=== PATIENT | female | born 1970 | race Caucasian/White ===

== ENCOUNTER 2021-07-27 07:05 | Day surgery (SDC) | payer OTHER ==
[~2021-07-27] VITALS: Ht 167.6 cm; Wt 77.3 kg
--- NOTE | ~2021-07-27 | OR ---
[facility] [address] [place], [place] [address] Draft DATE OF OPERATION: 07/27/2021 SURGEON: Maxine Zuniga DO PROCEDURE: Total laparoscopic hysterectomy, bilateral salpingectomy, cystoscopy. PER DIEM REGISTERED NURSE: Dr. Escalante. PREOPERATIVE DIAGNOSES: Abnormal uterine bleeding, adenomyosis, chronic endometritis, iron deficiency. POSTOPERATIVE DIAGNOSES: Abnormal uterine bleeding, adenomyosis, chronic endometritis, iron deficiency. ANESTHESIA: General. BLOOD LOSS: 15 mL. COMPLICATIONS: None. SPECIMENS REMOVED: Uterus, tubes, cervix. FINDINGS: Normal-appearing uterus, bilateral tubes and ovaries with left ovary containing a simple appearing physiologic cyst. No intraabdominal adhesions noted. present posterior cul-de-sac. No endometriosis lesion noted overlying bladder or neither bilateral ovarian fossa. INDICATION: The patient is a 50-year-old female, who presented for evaluation of abnormal prolonged and heavy uterine bleeding. Ultrasound was initially concerning for adenomyosis. She declined medical management with Mirena IUD after having tried and failed that over the last year. In office hysteroscopy was performed, which demonstrated pathology significant for adenomyosis and chronic endometritis. The patient strongly desired PATIENT NAME: LAZARO ESCALANTE OPERATIVE REPORT DATE OF : 74 REPORT #: [id number] PHYSICIAN: MAXINE ZUNIGA DO PCP: MAXINE ZUNIGA DO REPORT IS CONFIDENTIAL AND NOT TO BE RELEASED WITHOUT AUTHORIZATION [facility] [address] [facility] [place], [place] [address] Draft definitive surgical management. The risks, benefits, and alternatives to total laparoscopic hysterectomy, bilateral salpingectomy, and cystoscopy were discussed and she elected to proceed. DESCRIPTION OF PROCEDURE: The patient was given 2 g Ancef and taken back to the OR where she was placed under general anesthesia and positioned in dorsal lithotomy. She was prepped and draped in normal sterile fashion. A Dial catheter was placed. A weighted speculum was placed in the vagina. The anterior lip of the cervix was grasped with an Allis clamp and sounded to accommodate a [employer] uterine manipulator. Uterine manipulator was placed without difficulty. All other instrumentation was removed. Surgeon's gloves were changed and attention was turned to the abdomen. 0.25% Marcaine with epinephrine was injected infraumbilically in a curvilinear manner. DICTATION ENDS HERE DO JOYCE Bates/MODL /[id number] Copies: ~ PATIENT NAME: SALLYLAZARO FREEMAN OPERATIVE REPORT DATE OF : 74 REPORT #: [id number] PHYSICIAN: MAXINE ZUNIGA DO PCP: MAXINE ZUNIGA DO REPORT IS CONFIDENTIAL AND NOT TO BE RELEASED WITHOUT AUTHORIZATION
--- NOTE | ~2021-07-27 | OR ---
[facility] [address] [place], [place] [address] Draft DATE OF OPERATION: 07/27/2021 SURGEON: Maxine Zuniga DO BOTTLING LINE OPERATOR: Dr. Escalante. PROCEDURE: Total laparoscopic hysterectomy, bilateral salpingectomy, and cystoscopy. PREOPERATIVE DIAGNOSES: Abnormal uterine bleeding, adenomyosis, chronic endometritis, iron deficiency. POSTOPERATIVE DIAGNOSES: Abnormal uterine bleeding, adenomyosis, chronic endometritis, iron deficiency. ANESTHESIA: General. BLOOD LOSS: 15 mL. COMPLICATIONS: None. FINDINGS: Normal-appearing uterus, bilateral tubes and ovaries. Left ovary with simple physiologic appearing cyst. No endometriosis scarring or other lesions noted overlying bladder, uterus sacral ligaments or bilateral ovarian fossa. Kalpesh-Masters defect present in the posterior fossa, intact bladder dome and [place] without puckering, pinching or sutures visible noted on cystoscopy as well as brisk bilateral ureteral jets. INDICATION: Patient is a 50-year-old female with history of failed medical management of abnormal uterine bleeding, previously having tried Mirena IUD, ultrasound was concerning for adenomyosis, which was confirmed with hysteroscopy, D and C in office. The patient strongly desired definitive surgical management in the form of a hysterectomy. The risks, benefits, and alternatives to a total laparoscopic hysterectomy, bilateral salpingectomy, and cystoscopy were discussed with the patient and her . All PATIENT NAME: LAZARO ESCALANTE DRAGANJAMILAFAISAL OPERATIVE REPORT DATE OF : 74 REPORT #: [id number] PHYSICIAN: MAXINE ZUNIGA DO PCP: MAXINE ZUNIGA DO REPORT IS CONFIDENTIAL AND NOT TO BE RELEASED WITHOUT AUTHORIZATION [facility] [address] [place], [place] [address] Draft questions were answered to their apparent satisfaction and they elected to proceed. PROCEDURE: Patient was taken to the operating room where she was given 2 g Ancef and placed under general anesthesia. She was positioned in dorsal lithotomy and prepped and draped in normal sterile fashion. Dial catheter was placed. Weighted speculum was placed in the vagina. Anterior lip of the cervix was grasped with an Allis clamp and cervix was easily sequentially dilated with Hegar dilators to accommodate a VCare uterine manipulator. Uterine manipulator was placed without difficulty. All other instrumentation was removed. Surgeon's gloves were changed and attention was turned to the abdomen. 0.25% Marcaine was injected in a curvilinear fashion in the infraumbilical fold after which the incision was made with a scalpel. This was carried down to the underlying layer of fascia with blunt and sharp dissection with hemostats and Metzenbaum scissors. Once the fascia was incised, the inferior lip was tagged with a stay suture of 0 Vicryl in a similar manner. Superior lip was tagged with 0 Vicryl stay suture. Peritoneum was entered bluntly. Naga trocar was placed and pneumoperitoneum was achieved with CO2 gas. The patient was placed in Trendelenburg and local anesthetic was injected in the left lower quadrant. Incision was made with a scalpel and 5 mm trocar was placed in left lateral abdomen under direct visualization without complication or difficulty. In a similar manner, local anesthetic was injected in the right lower abdomen. Incision was made with scalpel. A 12 mm trocar was placed under direct visualization without difficulty or complication. Blunt graspers were then used to retract the bowel from the pelvis and pelvis was surveyed with findings as noted above. Left fimbriated end of the fallopian tubes was grasped and elevated with atraumatic graspers. LigaSure device was used to cauterize and cut along the mesosalpinx and amputated at the level of the cornua. Tube was removed from the abdomen under direct visualization, in a similar manner right fimbriated end of the fallopian tube was grasped and elevated. A LigaSure device was used to cauterize and cut along the mesosalpinx to the level of the cornua where tube was transected and then removed from the abdomen under direct visualization. Right utero-ovarian ligament was cauterized and cut also with LigaSure device in a similar manner. Left utero-ovarian ligament was then cauterized and cut. LigaSure device was used for the remainder of the case except as otherwise noted. Round ligament was cauterized and cut adjoining with prior cauterization of utero-ovarian ligament on the left. The posterior leaf of the broad ligament was entered and dissected down to the level of the left uterosacral and brought across medially. In a similar manner, the anterior leaf was dissected to the level of the cardinal ligaments, brought across medially initiating the bladder flap. Uterine vessels were skeletonized and cauterized and cut with resulting hemostasis. Attention was then turned to the right side where the round ligament was cauterized and cut meeting prior cauterization and cut of utero-ovarian ligament. Anterior leaf of the broad ligament on the right was dissected down to the level of the cardinal ligaments, was brought medially to join with the prior dissection. Bladder flap was then further PATIENT NAME: LAZARO ESCALANTE OPERATIVE REPORT DATE OF : 74 REPORT #: [id number] PHYSICIAN: MAXINE ZUNIGA DO PCP: MAXINE ZUNIGA DO REPORT IS CONFIDENTIAL AND NOT TO BE RELEASED WITHOUT AUTHORIZATION [facility] [address] [place], [place] [address] Draft developed anteriorly, the posterior leaf of the broad ligament was then dissected posteriorly to the level of the right uterosacral, brought across medially to meet the prior dissection. Uterine vessels were then skeletonized, cauterized, and cut with resulting hemostasis. Cervical pelvic fascia was further developed bilaterally. Excellent blanching of the uterus was noted. Colpotomy was performed with AUTOFACT Harmonic device taking care to stay within balance of the VCare uterine manipulator and working first from 6 o'clock to 12 o'clock in a clockwise direction, then from 6 o'clock to 12 o'clock in a counter-clockwise direction. Once uterus and cervix were free, they were delivered vaginally. Vaginal packing was placed. Surgeon's gloves were changed and attention was returned to the abdomen. Pelvis was suction irrigated with mild bruising noted near the right apex at the level of the left uterosacral posteriorly. Cuff closure was initiated with VCare where V-Loc suture using the Endo Stitch device working from right uterosacral towards midline. However, the device jammed, suture was cut and a second suture was brought in to complete the closure working again from right uterosacral ligament to left uterosacral ligament and back towards midline as per healthcare translator's guidelines. Suture was cut. Pelvis was again suction irrigated with excellent hemostasis noted even at the right apex. Fascia of the 12 mm incision was closed with 0 Vicryl stitch using the Manuel Orlando device. Remaining trocars were removed. Fascia of the infraumbilical incision was closed with 0 Vicryl in a running fashion. Stay sutures were tied over top of the closure and skin was closed with 4-0 Monocryl. Attention was then turned to the bladder. Vaginal packing was removed. Dial catheter was removed. Cystoscope was inserted without difficulty. Bladder was surveyed with normal findings as noted above and brisk bilateral ureteral jets. All instrumentation was removed. Sponge and instrument counts were correct. The patient was taken to recovery room in stable and satisfactory condition. Maxine Zuniga DO [facility] [place] /[id number] Copies: ~ PATIENT NAME: LAZARO ESCALANTE OPERATIVE REPORT DATE OF : 74 REPORT #: [id number] PHYSICIAN: MAXINE ZUNIGA DO PCP: MAXINE ZUNIGA DO REPORT IS CONFIDENTIAL AND NOT TO BE RELEASED WITHOUT AUTHORIZATION
[~2021-07-27 07:05] MED LIST: IRON18 MG PO; ISO D3 2,000 U1 EACH PO
--- NOTE | 2021-07-28 16:47 | PATH ---
[facility] [address] [place], [place] [address] Signed SPECIMEN(S): A UTERUS, CERVIX, BILAT FALLOPIAN TUBES SPECIMEN SOURCE: A. UTERUS, CERVIX, BILAT FALLOPIAN TUBES CLINICAL HISTORY: Abnormal uterine bleeding. TLH, BS, cystoscopy. FINAL PATHOLOGIC DIAGNOSIS: Uterus, cervix, and bilateral fallopian tubes, hysterectomy and bilateral salpingectomy: - Cervix: No histopathologic abnormality. - Endometrium: Late secretory phase endometrium. - Myometrium: No histopathologic abnormality. - Fallopian tubes: No histopathologic abnormality. - No evidence of malignancy. NAL:cml:C2NR MICROSCOPIC EXAMINATION: Histologic sections of all submitted blocks are examined by light microscopy. These findings, together with the gross examination, support the pathologic diagnosis. GROSS DESCRIPTION: The specimen, labeled "SW, A," and designated on the requisition "uterus, cervix, bilateral fallopian tubes," is received in formalin and consists of a uterus (136 gram, 7.0 cm superior to inferior, 6.7 cm cornu to cornu, 5.5 cm anterior to posterior), attached cervix (3.3 x 3.3 cm) with pink-perez, smooth cervical mucosa and patent, slit-shaped os (2.0 x 0.2 cm), and two detached and undesignated fimbriated fallopian tube segments (5.5 cm in length and ranging in diameter from 0.7-1.0 cm, and 6.3 cm in length and ranging in diameter from 0.7-1.1 cm). One fallopian tube segment is arbitrarily inked blue. Both fallopian tube segments are brown-perez and are sectioned to reveal a grossly unremarkable cut surface. The fimbriae are entirely submitted. The uterine serosa is pink-perez and smooth. The specimen is opened to reveal a pink-perez to hemorrhagic endocervix (endocervical canal: 3.0 cm in length x 1.5 cm in diameter) with multiple mucoid material-filled cysts within the wall of the cervix that measure up to 0.9 cm in greatest dimension, and endometrial cavity (4.5 cm superior to inferior x PATIENT NAME: LAZARO ZAVALA PATHOLOGY DATE OF : 74 REPORT #: [id number] PHYSICIAN: NELLY ADAN PCP: MAXINE LEVINE DO REPORT IS CONFIDENTIAL AND NOT TO BE RELEASED WITHOUT AUTHORIZATION [facility] [address] [place], [place] [address] Signed 3.2 cm cornu to cornu) with hemorrhagic endometrial lining that measures up to 0.2 cm in thickness. The myometrium is pink-perez and trabeculated with no masses. Marine Service Manager sections are submitted as follows: Cassette Summary: (A1-A2) Fallopian tubes (A3) Cervix (A4) Endomyometrium AC (under the direct supervision of a pathologist) The Gross Description was prepared using a voice recognition system. The report was reviewed for accuracy; however, sound-alike word errors, addition and/or deletions may occur. If there is any question about this report, please contact Client Services. PERFORMING LABORATORY: The technical component was performed by [employer], [address] [place] [id number] (CLIA# [id number]). Professional interpretation was performed by [facility], [address] [place], [place] [address] (CLIA# [id number]). Diagnostician: Loly Graham MD Pathologist Electronically Signed 07/28/2021 Copies: ~ PATIENT NAME: LAZARO ZAVALA PATHOLOGY DATE OF : 74 REPORT #: [id number] PHYSICIAN: NELLY ADAN PCP: MAXINE LEVINE DO REPORT IS CONFIDENTIAL AND NOT TO BE RELEASED WITHOUT AUTHORIZATION
== END 2021-07-27 17:40 | disposition home or self-care (01) ==
LOC: OPS 07:05 → DS 07:05 → OPS 09:15
PROVIDERS: ATTEND Obstetrics & Gynecology
PROC: 0UT94ZZ Resection of Uterus, Percutaneous Endoscopic Approach (ICD-10-PCS; principal; 2021-07-27 09:15)
PROC: 0UT74ZZ Resection of Bilateral Fallopian Tubes, Percutaneous Endoscopic Approach (ICD-10-PCS; 2021-07-27 09:15)
DX: N93.9 Abnormal uterine and vaginal bleeding, unspecified (principal); N71.1 Chronic inflammatory disease of uterus; E61.1 Iron deficiency; N80.0 Endometriosis of uterus; Z20.822 Contact with and (suspected) exposure to COVID-19
CPT/HCPCS: J0131; J1100; J1885; J2300; J2405; J2704; J3475; J7121